=== PATIENT | male | born 1985 | race Caucasian/White ===

== ENCOUNTER 2018-10-23 09:23 | Emergency (ER) | payer OTHER ==
--- NOTE | 2018-10-23 10:37 | UC ---
Lower Extremity/Ankle HPI - HPI Summary HPI Summary: 32 yo male presents with RIGHT ankle injury. He tells me that last night he was walking down a flight of stairs and missed the last step - inverted his right ankle. Has since developed pain and swelling. Pain is worse with ambulation. Pain better with rest, ice, and elevation. He denies numbness or tingling. - History of Current Complaint Stated Complaint: ANKLE INJURY Time Seen by Provider: 10/23/18 10:37 Hx Obtained From: Patient Onset/Duration: Sudden Onset Severity Initially: Mild Severity Currently: Mild Pain Intensity: 3 Pain Scale Used: 0-10 Numeric Aggravating Factor(s): Standing, Ambulation - Allergies/Home Medications Allergies/Adverse Reactions: Allergies Allergy/AdvReac Type Severity Reaction Status Date / Time Milk Containing Products Allergy diarhea Verified 10/23/18 10:44 Home Medications: Home Medications NK [No Home Medications Reported] 10/23/18 [History Confirmed 10/23/18] PMH/Surg Hx/FS Hx/Imm Hx - Additional Past Medical History Additional PMH: None - Surgical History Surgical History: None - Family History Known Family History: Positive: Non-Contributory - Social History Occupation: Employed Full-time Lives: With Family Alcohol Use: Occasionally Substance Use Type: None Smoking Status (MU): Never Smoked Tobacco Review of Systems All Other Systems Reviewed And Are Negative: No Constitutional: Positive: Negative Skin: Positive: Negative Respiratory: Positive: Negative Cardiovascular: Positive: Negative Musculoskeletal: Positive: Other: - Right ankle pain Neurological: Positive: Negative Psychological: Positive: Negative Physical Exam - Summary Physical Exam Summary: GENERAL: NAD. WDWN. No pain distress. SKIN: No rashes, sores, lesions, or open wounds. CHEST: No accessory muscle use. Breathing comfortably and in no distress. CV: Pulses intact PT and DP. Cap refill <2seconds MSK: RIGHT ANKLE: Moderate edema about lateral malleolus with mild ecchymosis. TTP about lateral malleolus and ATFL. Pain with inversion - guards against exam. NEURO: Alert. Sensations intact and symmetric B/L LEs PSYCH: Age appropriate behavior. Triage Information Reviewed: Yes Vital Signs: Vital Signs: Temp Pulse Resp BP Pulse Ox 98.8 F 63 16 114/80 100 10/23/18 10:41 10/23/18 10:41 10/23/18 10:41 10/23/18 10:41 10/23/18 10:41 Vital Signs Reviewed: Yes Diagnostics - Radiology ankle Radiology Interpretation Completed By: Radiologist Summary of Radiographic Findings: IMPRESSION: SMALL BONE FRAGMENT OFF THE DISTAL FIBULA CONSISTENT WITH NONDISPLACED AVULSION FRACTURE. foot Radiology Interpretation Completed By: Radiologist Summary of Radiographic Findings: IMPRESSION: SMALL BONE FRAGMENT OFF THE DISTAL FIBULA CONSISTENT WITH NONDISPLACED AVULSION FRACTURE. Lower Extremity Course/Dx - Course Course Of Treatment: XR positive for fracture. Discussed with pt. He was placed in a CAM boot to use as much as possible - declined crutches today. Advised to RICE and f/u with Orthopedics next week for further treatment - Differential Dx/Diagnosis Provider Diagnosis: Closed right ankle fracture Discharge ED - Sign-Out/Discharge Documenting (check all that apply): Patient Departure All imaging exams completed and their final reports reviewed: Yes - Discharge Plan Condition: Stable Disposition: HOME Patient Education Materials: Ankle Fracture (DC) Referrals: No Primary Care Phys,NOPCP [Primary Care Provider] - Brian Hernández MD [Medical Doctor] - 5 Days Additional Instructions: If you develop a fever, shortness of breath, chest pain, new or worsening symptoms - please call your PCP or go to the ED immediately. 1) Rest, Ice, and elevate your ankle intermittently throughout the day to reduce pain and swelling 2) Use the walking boot as much as possible 3) Please call Orthopedics at the number below to schedule a follow up appointment within the next 1 week for further evaluation of your ankle fracture - Billing Disposition and Condition Condition: STABLE Disposition: Home
[2018-10-23 10:44] VITALS: BP 114/80
== END 2018-10-23 11:54 | disposition home or self-care (01) ==
LOC: UCEAST 09:23
DX: S82.891A Other fracture of right lower leg, initial encounter for closed fracture (principal); W10.9XXA Fall (on) (from) unspecified stairs and steps, initial encounter; Y92.9 Unspecified place or not applicable
CPT/HCPCS: 99202; G0463